=== PATIENT | female | born 1990 | race Two or more races ===

== ENCOUNTER 2024-10-25 10:00 | Outpatient (AMB) | payer MEDICAID, SELFPAY ==
[2024-10-25 11:03] VITALS: BP 112/78; PULSE 82; RESP 18; TEMP 36.6; O2SAT 98; BMI 26.4
--- NOTE | 2024-10-25 11:03 | ORTHONT_ITS ---
Vital signs 10/25/24 11:03 Height 1.57 m Height Method Stated Weight 65.431 kg Weight Measurement Method Standing Scale BMI 26.4 BP 112/78 Blood Pressure Source Automatic Cuff Blood Pressure Location Left Upper Arm Position Sitting Respiration 18 Pulse 82 Pulse Source Monitor Temp 97.9 F Temp Source Temporal Artery Scan Pulse Oximetry (%) 98 Oxygen Delivery Method Room Air Med/Allergies Allergies & Medications Allergies amoxicillin Allergy (Verified 10/25/24 11:04) Hives Medication Reconciliation meloxicam 7.5 mg tablet 7.5 mg PO QDAY #45 tabs 10/25/24 [Rx] Subjective Visit Visit for: new patient and knee (RIGHT) Immunization / Flu Flu Vaccine in the Last 12 Months: No Flu Vaccine Exclusion Criteria: No Exclusion Criteria History of Present Illness Chief complaint: RIGHT KNEE PAIN Geovanni is a pleasant 34-year-old female with right knee pain and what I suspect is a right knee meniscal tear. The pains been ongoing for at least 4 years sin ce COVID. This occurred after hiking. She has not had any anti-inflammatories or injections. She has tried formal physical therapy. She reports the knee is bothering her quite a bit. 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 Exam Exam Patient is in no acute distress and is cooperative with the examination today. Breathing is nonlabored. Patient has a normal mood and affect. The patient has a gait that is [nonantalgic] Bilateral extremities were evaluated and demonstrates sensation intact to light touch. Palpable pedal pulses are present. No significant edema is present. Bilateral hips were examined. The patient has no pain with log roll of the hips. Internal rotation to 30 degrees and external rotation to 30 degrees is painless. Negative FADIR. Left knee was examined today. The left knee is in reasonable alignment. Range of motion from 0-120 degrees. Knee is stable to varus and valgus as well as AP translation with <5mm. Patient has a negative McMurrays. There is no pain with patellofemoral compression and no crepitus noted. The knee is nontender to palpation. The right knee was also examined. Right knee is neutral alignment. She is tender to palpation medially and laterally at the joint line. She has a positive Jackie's and negative Clemencia's Assessment and Plan Problem List (1) Right knee meniscal tear: Status: Acute Plan: Patient is a pleasant 34-year-old female with right knee pain and a right knee meniscal tear based on clinical examination. She had a prior MRI that was normal but it is almost 3 years old. We would like to order a repeat MRI given her persistent pain and failure with therapy. We will see her back after the MRI is done. We will discuss different treatment options depending on what the MRI shows. 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 KEEPER Level 4 ([id number]) Past Medical History Past Medical History Have you ever been diagnosed with any of the following: Cardiology Problems Congestive Heart Failure: No Respiratory Problems Chronic Obstructive Pulmonary Disease (COPD): No Asthma: Yes (rarely takes med) Smoking: No Smoking Exposure: No Stomache/Intestinal Problems Hepatitis: No Genital/Urinary Problems Renal Disease: No Reproductive Problems Previous Pregnancies: Yes Endocrine Problems Diabetes Mellitus Type 1: No Diabetes Mellitus Type 2: No Blood Problems Sickle Cell Disease: No Psychologic Problems Anxiety: Yes Other Problems Hospitalization: No Shingles: No Blood Transfusions: No MRSA: No Chicken Pox: Yes Cancer: No
== END 2024-10-25 11:18 | disposition home or self-care (01) ==
PROVIDERS: PCP Family Medicine; Referring Provider Family Medicine; Supervising Provider Orthopaedic Surgery Adult Reconstructive Orthopaedic Surgery; Visit Provider Orthopaedic Surgery Adult Reconstructive Orthopaedic Surgery
DX: S83.206D Unspecified tear of unspecified meniscus, current injury, right knee, subsequent encounter (principal); X58.XXXD Exposure to other specified factors, subsequent encounter
CPT/HCPCS: 99204; G0463

== ENCOUNTER → 2024-12-03 | Outpatient (CLI) | payer MEDICAID, SELFPAY ==
--- NOTE | 2024-12-03 09:30 | XR_ITS ---
Exam: MRI knee without contrast, right Date and time of exam: December 03, 2024 0939 hrs. Indications: Anterior knee swelling pain joint locking joint clicking for years, worse the last 6 months Technique: Multiple axial, coronal, and sagittal sections on the knee have been obtained. T2-Weighted sagittal, fat-suppressed images, TR 3,500, TE 62, T2 weighted coronal fat-saturated images, TR 3,500, TE 62 Proton density sagittal sections, TR 1800, TE 31. T-1 weighted coronal images, TR 524, TE 13.0 Findings: Medial meniscus anterior horn intact. Medial meniscus, body is intact. Posterior horn medial meniscus intact. Lateral meniscus anterior horn is intact Lateral meniscus, body is intact Posterior horn lateral meniscus is intact Anterior cruciate ligament moderately attenuated Posterior cruciate ligament appears intact. Knee effusion is minimal. Quadriceps and patellar tendons appear intact. There is no evidence of tendinosis. Inflammatory change or fracture of Hoffa's fat pad is not seen. Medial patellar facet demonstrates no thinning. Lateral patellar facet cartilage demonstrates no thinning. Trochlear cartilage demonstrates no thinning. Marrow signal adequate. Medial collateral ligament appears intact. No meniscocapsular separation is seen. Illiotibial band and fibular collateral ligament are intact. Biceps femoris tendons appear intact. Medial femoral condylar articular cartilage demonstrates mild thinning. Lateral femoral condylar articular cartilage demonstratesmild thinning. Tibial plateau cartilage demonstrates mild thinning. Impression: Moderately attenuated anterior cruciate ligament
== END | disposition home or self-care (01) ==
LOC: SMRI 09:18
PROVIDERS: PCP Physician Assistant Medical; Referring Provider Orthopaedic Surgery Adult Reconstructive Orthopaedic Surgery; Visit Provider Orthopaedic Surgery Adult Reconstructive Orthopaedic Surgery
DX: M25.861 Other specified joint disorders, right knee (principal)
CPT/HCPCS: 73721

== ENCOUNTER 2024-12-23 13:38 | Outpatient (AMB) | payer MEDICAID, SELFPAY ==
[2024-12-23 14:24] VITALS: BP 119/85; PULSE 101; RESP 19; TEMP 36.7; O2SAT 98; BMI 26.4
--- NOTE | 2024-12-23 14:24 | PD.ORTHCLVIS ---
Vital signs 12/23/24 14:24 Height 1.57 m Height Method Stated Weight 65.119 kg Weight Measurement Method Standing Scale BMI 26.4 BP 119/85 H Blood Pressure Source Automatic Cuff Blood Pressure Location Right Upper Arm Position Sitting Respiration 19 Pulse 101 H Pulse Source Monitor Temp 98.0 F Temp Source Temporal Artery Scan Pulse Oximetry (%) 98 Oxygen Delivery Method Room Air Med/Allergies Allergies & Medications Allergies amoxicillin Allergy (Verified 12/23/24 14:25) Hives Medication Reconciliation meloxicam 7.5 mg tablet 7.5 mg PO QDAY #45 tabs 10/25/24 [Rx Confirmed 12/23/24] Exam Exam Patient is in no acute distress and is cooperative with the examination today. Breathing is nonlabored. Patient has a normal mood and affect. The patient has a gait that is [nonantalgic] Bilateral extremities were evaluated and demonstrates sensation intact to light touch. Palpable pedal pulses are present. No significant edema is present. Bilateral hips were examined. The patient has no pain with log roll of the hips. Internal rotation to 30 degrees and external rotation to 30 degrees is painless. Negative FADIR. Left knee was examined today. The left knee is in reasonable alignment. Range of motion from 0-120 degrees. Knee is stable to varus and valgus as well as AP translation with <5mm. Patient has a negative McMurrays. There is no pain with patellofemoral compression and no crepitus noted. The knee is nontender to palpation. The right knee was also examined. Right knee is neutral alignment. She is tender to palpation medially and laterally at the joint line. She has a positive Jackie's and negative Clemencia's Assessment and Plan Problem List (1) Right knee meniscal tear: Status: Acute Plan: Patient is a pleasant 34-year-old female with right knee pain and a right knee meniscal tear based on clinical examination. We reviewed her new MRI. This demonstrates no real pathology except for mildly attenuated ACL. Her meniscus actually looks great. We thus discussed continued conservative treatment. She did well with meloxicam and she would like a cortisone injectgion today. Recommend knee cortisone injection as patient would like to proceed with conservative treatment at this time. The risks and benefits of the procedure were reviewed with the patient and patient gave verbal consent to continue with the procedure. Procedure: performed by Dr. Ochoa Using sterile technique the Right knee was thoroughly prepped with alcohol, and approximately 1 cc of Kenalog 40 mg/mL and 4 cc of 1% lidocaine was injected without resistance into the medial tibial femoral joint space. The patient tolerated the procedure. Office Procedures GNS Level of Care Nursing/Assessment Patient Status: Established Patient Nursing Assessment/Reassesment: Medication Reconciliation, Update PMH in EMR and Vital Signs Coordination of Care: Complex Care and Chronic Disease 1-5, Education Complex Pt/Fam, Consent,records obtained, informed consent, Results/Orders obtained and Staff clarify orders Established Patient Charge Established Patient Point Assignment: 95 Established Patient Point Charge: EP Level 3 (80-115) Surgical Proc/IM SQ injection Major Surgical Procedure: Yes MA Intake Visit Data Collection New Patient or Established: Established Patient (seen at [facility] within 3 years) Reason for Visit:: f/u mri Seen by Clinical Staff ONLY (RN/MA): No Verbal consent obtained for Telemed visit?: 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 PCP or OBGYN visit in last 3 months: Yes Hx Now: No Do You Feel Safe at Home: Yes Authorities Contacted: N/A Questionairres Past Medical History Past Medical History Have you ever been diagnosed with any of the following: Cardiology Problems Congestive Heart Failure: No Respiratory Problems Chronic Obstructive Pulmonary Disease (COPD): No Asthma: Yes (rarely takes med) Smoking: No Smoking Exposure: No Stomache/Intestinal Problems Hepatitis: No Genital/Urinary Problems Renal Disease: No Reproductive Problems Previous Pregnancies: Yes Endocrine Problems Diabetes Mellitus Type 1: No Diabetes Mellitus Type 2: No Blood Problems Sickle Cell Disease: No Psychologic Problems Anxiety: Yes Other Problems Hospitalization: No Shingles: No Blood Transfusions: No MRSA: No Chicken Pox: Yes Cancer: No Subjective Visit Visit for: follow up visit and MRI Immunization / Flu Flu Vaccine in the Last 12 Months: No Flu Vaccine Exclusion Criteria: No Exclusion Criteria History of Present Illness Chief complaint: F/U MRI RESULTS Patient is a 34-year-old female with right knee pain. We ordered an MRI. We went over the MRI results today. It was relatively normal again except for the moderately attenuated ACL. Pain Pain level (0-10): 8 Pain duration: ALL DAY Ambulatory data Ambulatory device: none Treatments Improvement with previous injections: No Improvement with PT: No Improvement with NSAIDS: n/a Review of Systems Review of Systems: All systems negative unless otherwise noted in HPI.
== END 2024-12-23 14:42 | disposition home or self-care (01) ==
LOC: HODSRG 13:38
PROVIDERS: PCP Family Medicine; Referring Provider Family Medicine; Supervising Provider Orthopaedic Surgery Adult Reconstructive Orthopaedic Surgery; Visit Provider Orthopaedic Surgery Adult Reconstructive Orthopaedic Surgery
DX: S83.206D Unspecified tear of unspecified meniscus, current injury, right knee, subsequent encounter (principal); X58.XXXD Exposure to other specified factors, subsequent encounter; M25.561 Pain in right knee
CPT/HCPCS: 20610; 99213; J3301; J3490; G0463

== ENCOUNTER 2025-03-23 08:08 | Outpatient (AMB) | payer MEDICAID, SELFPAY ==
[2025-03-23 08:38] VITALS: BP 104/73; PULSE 88; RESP 18; TEMP 36.1; O2SAT 99; BMI 26.2
--- NOTE | 2025-03-23 08:38 | PD.ORTHCLVIS ---
Vital signs 03/23/25 08:38 Height 1.57 m Height Method Stated Weight 64.58 kg Weight Measurement Method Standing Scale BMI 26.2 BP 104/73 Blood Pressure Source Automatic Cuff Blood Pressure Location Right Upper Arm Position Sitting Respiration 18 Pulse 88 Pulse Source Monitor Temp 96.9 F Temp Source Temporal Artery Scan Pulse Oximetry (%) 99 Oxygen Delivery Method Room Air Med/Allergies Allergies & Medications Allergies amoxicillin Allergy (Verified 03/23/25 08:39) Hives Medication Reconciliation meloxicam 7.5 mg tablet 7.5 mg PO QDAY #45 tabs 10/25/24 [Rx Confirmed 03/23/25] Exam Exam Patient is in no acute distress and is cooperative with the examination today. Breathing is nonlabored. Patient has a normal mood and affect. The patient has a gait that is [nonantalgic] Bilateral extremities were evaluated and demonstrates sensation intact to light touch. Palpable pedal pulses are present. No significant edema is present. Bilateral hips were examined. The patient has no pain with log roll of the hips. Internal rotation to 30 degrees and external rotation to 30 degrees is painless. Negative FADIR. Left knee was examined today. The left knee is in reasonable alignment. Range of motion from 0-120 degrees. Knee is stable to varus and valgus as well as AP translation with <5mm. Patient has a negative McMurrays. There is no pain with patellofemoral compression and no crepitus noted. The knee is nontender to palpation. The right knee was also examined. Right knee is neutral alignment. She is tender to palpation medially and laterally at the joint line. She has a positive Jackie's and negative Clemencia's Assessment and Plan Problem List (1) Right knee meniscal tear: Status: Acute Plan: Patient is a pleasant 34-year-old female with right knee pain and a right knee meniscal tear based on clinical examination. We reviewed her new MRI. This demonstrates no real pathology except for a mildly attenuated ACL. Her meniscus actually looks great. We thus discussed continued conservative treatment. We tried a cortisone last time and it worked quite a while. She would like knee cortisone injection today. I would also like to get a Rheumatology workup Recommend knee cortisone injection as patient would like to proceed with conservative treatment at this time. The risks and benefits of the procedure were reviewed with the patient and patient gave verbal consent to continue with the procedure. Procedure: performed by Dr. Ochoa Using sterile technique the Right knee was thoroughly prepped with alcohol, and approximately 1 cc of Kenalog 40 mg/mL and 4 cc of 1% lidocaine was injected without resistance into the medial tibial femoral joint space. The patient tolerated the procedure. Office Procedures GNS Level of Care Nursing/Assessment Patient Status: Established Patient Nursing Assessment/Reassesment: Medication Reconciliation, Update PMH in EMR and Vital Signs Coordination of Care: Complex Care and Chronic Disease 1-5, Education Complex Pt/Fam, Consent,records obtained, informed consent, Results/Orders obtained and Staff clarify orders Established Patient Charge Established Patient Point Assignment: 95 Established Patient Point Charge: EP Level 3 (80-115) MA Intake Visit Data Collection New Patient or Established: Established Patient (seen at [facility] within 3 years) Reason for Visit:: MRI F/U Seen by Clinical Staff ONLY (RN/MA): No Verbal consent obtained for Telemed 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?: 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 PCP or OBGYN visit in last 3 months: Yes Hx Now: No Do You Feel Safe at Home: Yes Authorities Contacted: N/A Questionairres Past Medical History Past Medical History Have you ever been diagnosed with any of the following: Cardiology Problems Congestive Heart Failure: No Respiratory Problems Chronic Obstructive Pulmonary Disease (COPD): No Asthma: Yes (rarely takes med) Smoking: No Smoking Exposure: No Stomache/Intestinal Problems Hepatitis: No Genital/Urinary Problems Renal Disease: No Reproductive Problems Previous Pregnancies: Yes Endocrine Problems Diabetes Mellitus Type 1: No Diabetes Mellitus Type 2: No Blood Problems Sickle Cell Disease: No Psychologic Problems Anxiety: Yes Other Problems Hospitalization: No Shingles: No Blood Transfusions: No MRSA: No Chicken Pox: Yes Cancer: No Subjective Visit Visit for: follow up visit, knee and MRI Immunization / Flu Flu Vaccine in the Last 12 Months: No Flu Vaccine Exclusion Criteria: No Exclusion Criteria History of Present Illness Chief complaint: F/U MRI Patient is a 34-year-old female with right knee pain. We ordered an MRI. We went over the MRI results today. It was relatively normal again except for the moderately attenuated ACL. The patient reports that the knee does swell up quite a bit. This happens approximately every week or 2. She had an injection once and reports it helped for quite a bit of time. She hsa also had formal physical therapy and has tried anti-inflammatories. We did order an MRI previously which does not demonstrate any meniscal findings there is a mildly attenuated ACL as the only finding on the read. Pain Pain level (0-10): 10 Pain duration: ALL DAY Pain location: anterior Pain quality: sharp and other (specify) (SWOLLEN) Pain timing: increases with activity Associated signs & symptoms: none Ambulatory data Ambulatory device: none Treatments Improvement with previous injections: No Improvement with PT: No Improvement with NSAIDS: no Review of Systems Review of Systems: All systems negative unless otherwise noted in HPI.
== END 2025-03-23 09:05 | disposition home or self-care (01) ==
LOC: HODSRG 08:08
PROVIDERS: PCP Physician Assistant Medical; Referring Provider Physician Assistant Medical; Supervising Provider Orthopaedic Surgery Adult Reconstructive Orthopaedic Surgery; Visit Provider Orthopaedic Surgery Adult Reconstructive Orthopaedic Surgery
DX: S83.206D Unspecified tear of unspecified meniscus, current injury, right knee, subsequent encounter (principal); X58.XXXD Exposure to other specified factors, subsequent encounter; M25.561 Pain in right knee
CPT/HCPCS: 20610; 99213; J3301; J3490; G0463

== ENCOUNTER 2025-06-22 07:48 | Outpatient (AMB) | payer MEDICAID, SELFPAY ==
[2025-06-22 08:01] VITALS: BP 101/69; PULSE 81; RESP 18; TEMP 36.6; O2SAT 98; BMI 26.3
--- NOTE | 2025-06-22 08:01 | ORTHONT_ITS ---
Vital signs 06/22/25 08:01 Height 1.57 m Height Method Stated Weight 64.892 kg Weight Measurement Method Standing Scale BMI 26.3 BP 101/69 Blood Pressure Source Automatic Cuff Blood Pressure Location Right Upper Arm Position Sitting Respiration 18 Pulse 81 Pulse Source Monitor Temp 97.9 F Temp Source Temporal Artery Scan Pulse Oximetry (%) 98 Oxygen Delivery Method Room Air Med/Allergies Allergies & Medications Allergies amoxicillin Allergy (Verified 06/22/25 08:02) Hives Medication Reconciliation meloxicam 7.5 mg tablet 7.5 mg PO QDAY #45 tabs 10/25/24 [Rx Confirmed 06/22/25] ibuprofen 800 mg tablet 800 mg PO Q8H 06/22/25 [History Confirmed 06/22/25] Exam Exam Patient is in no acute distress and is cooperative with the examination today. Breathing is nonlabored. Patient has a normal mood and affect. The patient has a gait that is [nonantalgic] Bilateral extremities were evaluated and demonstrates sensation intact to light touch. Palpable pedal pulses are present. No significant edema is present. Bilateral hips were examined. The patient has no pain with log roll of the hips. Internal rotation to 30 degrees and external rotation to 30 degrees is painless. Negative FADIR. Left knee was examined today. The left knee is in reasonable alignment. Range of motion from 0-120 degrees. Knee is stable to varus and valgus as well as AP translation with <5mm. Patient has a negative McMurrays. There is no pain with patellofemoral compression and no crepitus noted. The knee is nontender to palpation. The right knee was also examined. Right knee is neutral alignment. She is tender to palpation medially and laterally at the joint line. She has a positive Jackie's and negative Clemencia's Assessment and Plan Problem List (1) Right knee meniscal tear: Status: Acute Plan: Patient is a pleasant 34-year-old female with right knee pain and a right knee meniscal tear based on clinical examination. We reviewed her new MRI. This demonstrates no real pathology except for a mildly attenuated ACL. Her meniscus actually looks great. We thus discussed continued conservative treatment. We tried a cortisone last time and it worked quite a while. She would like a repeat knee cortisone injection today. Her rheumatology workup is negative. We will also order more physical therapy Recommend knee cortisoRecommend knee cortisone injection as patient would like to proceed with conservative treatment at this time. The risks and benefits of the procedure were reviewed with the patient and patient gave verbal consent to continue with the procedure. Procedure: performed by Dr. Ochoa Using sterile technique the Right knee was thoroughly prepped with alcohol, and approximately 1 cc of Depo-Medrol 80mg/mL and 4 cc of 0.2% ropivacaine was injected without resistance into the medial tibial femoral joint space. The patient tolerated the procedure.e injection as patient would like to proceed with conservative treatment at this time. The risks and benefits of the procedure were reviewed with the patient and patient gave verbal consent to continue with the procedure. Procedure: performed by Dr. Ochoa Using sterile technique the Right knee was thoroughly prepped with alcohol, and approximately 1 cc of Methylprednisolone 80 mg/mL and 4 cc of 0.2% 0.2% ropivacaine was injected without resistance into the medial tibial femoral joint space. The patient tolerated the procedure. Office Procedures GNS Level of Care Nursing/Assessment Patient Status: Established Patient Nursing Assessment/Reassesment: Medication Reconciliation, Update PMH in EMR and Vital Signs Coordination of Care: Complex Care and Chronic Disease 1-5, Education Complex Pt/Fam, Consent,records obtained, informed consent, Results/Orders obtained and Staff clarify orders Established Patient Charge Established Patient Point Assignment: 95 Established Patient Point Charge: EP Level 3 (80-115) Surgical Proc/IM SQ injection Major Surgical Procedure: Yes (RIGHT KNEE INJECTION) Medication Given Medication Given Medication Given: Yes Documented Dose Given: 1 Route: Infiitration Medication Given Medication Given Medication Given: Yes Documented Dose Given: 4 Route: Infiitration Office Meds methylprednisolone acetate 80 mg/mL suspension for injection Performing Provider: Venkata Ochoa MD Performing Location: [facility] Administered by: Venkata Ochoa MD on 06/22/25 08:20 Dose Route Admin Location Dispensed Lot Number Expiration Date [facility] Bank Clerk 80 mg intra-articular 1 mL [id number] 10/29/26 [address]-8 [facility] ropivacaine (PF) 2 mg/mL (0.2 %) injection solution Performing Provider: Venkata Ochoa MD Performing Location: [facility] Administered by: Venkata Ochoa MD on 06/22/25 08:20 Dose Route Admin Location Dispensed Lot Number Expiration Date [facility] Bank Clerk 20 mL Infiltration 20 mL [id number] 10/29/26 69753-882-37 CLIVE BAZAN MA Intake Visit Data Collection New Patient or Established: Established Patient (seen at [facility] within 3 years) Reason for Visit:: FOLLOW UP RIGHT KNEE PAIN Seen by Clinical Staff ONLY (RN/MA): No 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: No PCP or OBGYN visit in last 3 months: Yes Hx Now: No Do You Feel Safe at Home: Yes Authorities Contacted: N/A Questionairres Past Medical History Past Medical History Have you ever been diagnosed with any of the following: Neurological Problems Cerebrovascular Accident (CVA): No Transient Ischemic Attacks (TIA): No Dementia: No Alzheimer's Disease: No Parkinson's Disease: No Brain Tumor: No Meningitis: No Seizures: No Epilepsy: No Multiple Sclerosis: No Cerebral Palsy: No Amyotrophic Lateral Sclerosis (ALS/Tatiana Gehrig's): No Guillain-[place] Syndrome: No Spina Bifida: No Paralysis: No Peripheral Neuropathy: No Felton's Palsy: No Subdural Hematoma: No Migraine: No Head Trauma: No Spinal Cord Injury: No Traumatic Brain Injury: No Cardiology Problems Myocardial Infarction: No Cardiac Arrhythmia: No Atrial Fibrillation: No Angina: No Heart Murmur: No Coronary Artery Disease: No Atherosclerotic Heart Disease: No Peripheral Vascular Disease: No Hypercholesterolemia: No Aneurysm: No Congestive Heart Failure: No Congenital Heart Disease: No Valvular Heart Disease: No Rheumatic Fever: No Cardiomyopathy: No Edema: No Pericarditis: No Cellulitis: No Deep Vein Thrombosis: No Hypertension: No Hypotension: No Varicose Veins: No Respiratory Problems Chronic Obstructive Pulmonary Disease (COPD): No Asthma: Yes (rarely takes med) Bronchitis: No Emphysema: No Pneumonia: No Pulmonary Fibrosis: No Tuberculosis: No Pulmonary Embolism: No Pulmonary Edema: No Sleep Apnea: No CPAP Dependent: No Respiratory Aspiration: No Dyspnea: No Orthopnea: No Hx Cough: No Cough: No Wheezing: No Chest Deformities: No Smoking: No Smoking Cessation Counseling: No Smoking Exposure: No Tobacco Use: No Clubbing: No Exposure to Respiratory Irritants: No Intubation: No Stomache/Intestinal Problems Liver Cancer: No Hepatitis: No Cirrhosis: No Pancreatic Cancer: No Pancreatitis: No Celiac Disease: No Gall Bladder Disease: No Gastrointestinal Bleed: No Esophageal Varices: No Johnson's Esophagus: No Colitis: No Ulcerative Colitis: No Diverticulitis: No Diverticulosis: No Ulcer: No Colorectal Cancer: No Irritable Bowel: No Crohn's Disease: No Obstructive Bowel: No Hiatal Hernia: No Hemorrhoids: No Gastroesophageal Reflux Disease: No Polyps: No Obesity: No Genital/Urinary Problems Chronic Kidney Disease: No Renal Disease: No Kidney Stones: No Polycystic Kidney Disease: No Neurogenic Bladder: No Inguinal Hernia: No Dialysis: No Reproductive Problems Breast Cancer: No Endometriosis: No Fibroids: No Genital Herpes: No Gonorrhea: No Pelvic Inflammatory Disease: No Polycystic Ovarian Syndrome: No Previous Pregnancies: Yes Syphilis: No Uterine Prolapse: No Musculoskeletal Problems Muscular Dystrophy: No Myasthenia Gravis: No Marfan's Syndrome: No Bone Cancer: No Arthritis: No Rheumatoid Arthritis: No Osteoporosis: No Degenerative Disk Disease: No Gout: No Scoliosis: No Carpal Tunnel Syndrome: No Fibromyalgia: No Fractures: No Degenerative Joint Disease: No Osteomyelitis: No Poliovirus: No Head,Eye,Nose,Throat Problems Cataracts: No Glaucoma: No Blind: No Retinal Detachment: No Macular Degeneration: No Chronic Ear Infections: No Deafness: No Eye Prosthesis: No Endocrine Problems Diabetes Mellitus Type 1: No Diabetes Mellitus Type 2: No Blood Problems Anemia: No Leukemia: No Hemophilia: No Thalassemia: No Sickle Cell Disease: No Clotting Problems: No Psychologic Problems Schizophrenia: No Recreational Drug Use: No Bipolar Disorder: No Depression: No Anxiety: Yes Behavior Problems: No Self-Mutilation: No Attention Deficit Disorder: No Attention Deficit Hyperactivity Disorder: No Depression: No Post Traumatic Stress Disorder: No Eating Disorder: No Other Problems Hospitalization: No Autoimmune Disease: No Down Syndrome: No Autism: No Developmental Delay: No Cosmetic Surgery: No Shingles: No Falls: No Blood Transfusions: No Blood Transfusion Reaction: No Anesthesia Reactions: No Organ Transplant: No Chemotherapy: No Radiation Therapy: No Hyperbaric Therapy: No MRSA: No VRSA: No Vancomycin-Resistant Enterococci: No Human Immunodeficiency Virus (HIV): No Chicken Pox: Yes Measles: No Mumps: No Rubella (Armenian Measles): No Pertussis: No Klebsiella Pneumoniae Carbapenemase Producing Bacteria: No Clostridium Difficile: No Hepatitis A: No Hepatitis B: No Hepatitis C: No Communicable Disease: No Cancer: No Cervical Cancer: No Lung Cancer: No Ovarian Cancer: No Surgical History Angioplasty: No Appendectomy: No Bariatric Surgery: No Breast Surgery: No Cancer Surgery: No Carotid Endarterectomy: No Cholecystectomy: No Colectomy: No Colostomy: No Coronary Artery Bypass Graft: No Valve Replacement: No Herniorrhaphy: No Total Hip Replacement: No Total Knee Replacement: No Hysterectomy: No Pacemaker: No Sinus Surgery: No Splenectomy: No TAHBSO-Total Abdominal Hysterectomy: No Thyroidectomy: No Ureter Stent: No Subjective Visit Visit for: follow up visit, knee and injections (LASTED ONLY 1 MTH) Immunization / Flu Flu Vaccine in the Last 12 Months: No Flu Vaccine Exclusion Criteria: No Exclusion Criteria History of Present Illness Chief complaint: F/U MRI With patient is a pleasant 35-year-old female with right knee pain that has been ongoing for a while. She tried physical therapy, anti-inflammatories, and injections. Her MRI has been rather unremarkable. There was no meniscus tear which is what we expected. Pain Pain level (0-10): 6 Pain duration: ALL DAY Pain location: inside (medial) and anterior Pain quality: dull and aching Pain timing: night and increases with activity Associated signs & symptoms: weakness Ambulatory data Ambulatory device: other (specify) (KNEE BRACE) Treatments Number of previous injections: 1 Improvement with previous injections: No Improvement with PT: No Improvement with NSAIDS: no (IBUPROFEN) Review of Systems Review of Systems: All systems negative unless otherwise noted in HPI.
== END 2025-06-22 08:24 | disposition home or self-care (01) ==
LOC: HODSRG 07:48
PROVIDERS: PCP Physician Assistant Medical; Referring Provider Physician Assistant Medical; Supervising Provider Orthopaedic Surgery Adult Reconstructive Orthopaedic Surgery; Visit Provider Orthopaedic Surgery Adult Reconstructive Orthopaedic Surgery
DX: S83.206D Unspecified tear of unspecified meniscus, current injury, right knee, subsequent encounter (principal); X58.XXXD Exposure to other specified factors, subsequent encounter; M25.561 Pain in right knee
CPT/HCPCS: 20610; 99213; J1010; J2795; G0463

== ENCOUNTER 2025-07-24 08:05 | Outpatient (RCR) | payer MEDICAID, SELFPAY ==
--- NOTE | 2025-07-24 15:22 | PTNOTE_ITS ---
PT OP Initial Eval Patient Information Outpatient Physical Therapy Treatment Date: 07/24/25 Visit Reasons: right knee pain Medical Diagnosis: Right Knee Pain Treatment Dx #1: Right Knee Pain Start of Care: 07/24/25 Date of Onset: 2019 Smoking Status Smoking Status: Never smoker Initial Assessment Subjective: Pt is a 35 y/o female reports of chronic right knee pain (07/09) after hiking. This injury happen back in 2019 during covid. According to patient she has a torn meniscus and ACL. Pt has limitation with standing, walking, chores, self care, cooking, cleaning, work duties, balance, and performing recreational ac tivities. Objective: Right Knee AROM: all motions are WNL with end range pain Right Knee MMTs: grossly 4-/5 Right Hip MMTs: grossly 3+/5 Special Test (+) gagandeep's (+) Jackie Assessment: Pt demonstrate right knee pain with weakness leading to difficulty with ADLs. Pt will benefit from physical therapy to increase ROM, strength, and work on stability. Short Term and Halfway Goals 1) Increase right knee AROM WNL in 6 wks to be able to perform chores 2) Decrease knee pain to 2/10 in 6 wks to be able to stand more than 30 mins 3) Increase right knee MMTs grossly to 4/5 in 6 wks to be able to perform squatting activities 4) Increase right hip MMTs grossly to 4-/5 in 6 wks to be able to walk more than 30 mins 5) Indep with HEP Treatment Plan 1) Manual Therapy 2) Therapeutic Activities 3) Therapeutic Exercises 4) Modalities (ice, heat) 5) Balance Training 6) Gait Training Frequency and Duration: 2 x wk for 6 wks Certification Dates: 07/24/25 to 10/24/25 Procedure Charges OP PT Eval Mod Complex 30 minutes: Yes
== END 2025-07-30 23:59 | disposition home or self-care (01) ==
LOC: CPTX 08:05
PROVIDERS: PCP Physician Assistant Medical; Referring Provider Orthopaedic Surgery Adult Reconstructive Orthopaedic Surgery; Visit Provider Orthopaedic Surgery Adult Reconstructive Orthopaedic Surgery
DX: M25.561 Pain in right knee (principal); R53.1 Weakness; R26.2 Difficulty in walking, not elsewhere classified; R26.89 Other abnormalities of gait and mobility; G89.29 Other chronic pain
CPT/HCPCS: 97162

== ENCOUNTER 2025-08-28 08:00 | Outpatient (RCR) | payer MEDICAID, SELFPAY ==
--- NOTE | 2025-08-07 12:59 | PT.ODAYNRPT ---
PT Outpatient Daily Note OP Daily Note Outpatient Physical Therapy Treatment Date: 08/07/25 Visit Reasons: Rt knee pain Subjective: Pt's knee is about the same. No change in pain or swelling. Objective: Please see flow chart for list of ther ex performed Assessment: tolerate exercises with minimal pain. Post ice helped with pain and soreness Plan: Continue with PT Length of Time (minutes) of Treatment: 30 Minutes Procedure Charges Therapeutic Exercise 30 minutes: Yes
--- NOTE | 2025-08-14 10:49 | PT.ODAYNRPT ---
PT Outpatient Daily Note OP Daily Note Outpatient Physical Therapy Treatment Date: 08/14/25 Visit Reasons: Rt knee pain Subjective: Pt reports no improvement w/ Rt knee and explains she experiences an increase in pain and throbbing to Rt knee post ascending/descending a flight stairs. Objective: See F/S for therex performed Assessment: Tolerated therex well with good mechanics and minimal pain to Rt knee. Ice pack applied post session. Plan: Continue with POC Length of Time (minutes) of Treatment: 30 Minutes Procedure Charges Therapeutic Exercise 30 minutes: Yes
--- NOTE | 2025-08-28 08:56 | PT.ODAYNRPT ---
PT Outpatient Daily Note OP Daily Note Outpatient Physical Therapy Treatment Date: 08/28/25 Visit Reasons: Rt knee pain Subjective: Pt's knee hurting more. Pt was walking a lot in [place] this past week. Pt continues to have swelling in the knee and is unsure of the next MD appt. Objective: Please see flow chart for list of ther ex performed Assessment: difficulty with closed chain exercises due to knee pain, however, able to complete instructed reps Plan: Continue with PT Length of Time (minutes) of Treatment: 30 Minutes Procedure Charges Therapeutic Exercise 30 minutes: Yes
== END 2025-08-29 23:59 | disposition home or self-care (01) ==
LOC: CPTX 08:00
PROVIDERS: PCP Orthopaedic Surgery Adult Reconstructive Orthopaedic Surgery; Referring Provider Orthopaedic Surgery Adult Reconstructive Orthopaedic Surgery; Visit Provider Orthopaedic Surgery Adult Reconstructive Orthopaedic Surgery
DX: M25.561 Pain in right knee (principal); G89.29 Other chronic pain; R26.2 Difficulty in walking, not elsewhere classified; R26.89 Other abnormalities of gait and mobility; R53.1 Weakness
CPT/HCPCS: 97110

== ENCOUNTER 2025-09-12 15:30 | Outpatient (RCR) | payer MEDICAID, SELFPAY ==
--- NOTE | 2025-09-04 08:36 | PT.ODAYNRPT ---
PT Outpatient Daily Note OP Daily Note Outpatient Physical Therapy Treatment Date: 09/04/25 Visit Reasons: right knee pain Subjective: Pt' continues to have pain leading to difficulty with ADLs. Pt mentioned her knee feels about the same since starting physical therapy. Objective: Please see flow chart for list of ther ex performed Assessment: tolerate exercises with minimal pain; difficulty completing side step due to hip fatigue and knee pain Plan: Continue with PT Length of Time (minutes) of Treatment: 30 Minutes Procedure Charges Therapeutic Exercise 30 minutes: Yes
--- NOTE | 2025-09-12 15:51 | PT.ODS1RPT ---
PT OP Progress/Discharge Note Date of Service: 09/12/25 Progress Note/DC Note Progress Note/Discharge Note: DC Note Patient Information Visit Reasons: right knee pain Medical Diagnosis: Right Knee Pain Treatment Dx #1: Right Knee Pain Service Discharge Date: 09/12/25 Status Subjective: Pt's knee is the same and continues to hurt. Pt has a follow up appt with specialist at the end of the month. Pt still has pain with walking, standing, pivoting, squatting, and performing recreational activities. Objective: Right Knee AROM: all motions are WNL with end range pain Right Knee MMTs: grossly 4/5 Right Hip MMTs: grossly 3+5 Special Tet (+) gagandeep's (+) Jackie Assessment: Pt demonstrate functional right knee mobility and strength, however, no change in pain leading to difficulty with ADLs. At this time Pt will no longer benefit from physical therapy due to plateau towards goals. Pt was not instructed on HEP due to exercises increases pain. Pt advised to follow up with MD for further consultation; thank you for your referrals. Plan: D/C home with and follow up with MD LAM Procedure Charges Therapeutic Exercise 30 minutes: Yes
== END 2025-09-29 23:59 | disposition home or self-care (01) ==
LOC: CPTX 15:30
PROVIDERS: PCP Orthopaedic Surgery Adult Reconstructive Orthopaedic Surgery; Referring Provider Orthopaedic Surgery Adult Reconstructive Orthopaedic Surgery; Visit Provider Orthopaedic Surgery Adult Reconstructive Orthopaedic Surgery
DX: M25.561 Pain in right knee (principal); R26.2 Difficulty in walking, not elsewhere classified; R26.89 Other abnormalities of gait and mobility; R53.1 Weakness; G89.29 Other chronic pain
CPT/HCPCS: 97110

== ENCOUNTER 2025-09-22 07:53 | Outpatient (AMB) | payer MEDICAID, SELFPAY ==
--- NOTE | 2025-09-22 08:01 | PD.ORTHCLVIS ---
Vital signs 09/22/25 08:02 Height 1.57 m Height Method Stated Weight 64.524 kg Weight Measurement Method Standing Scale BMI 26.2 BP 109/74 Blood Pressure Source Automatic Cuff Blood Pressure Location Left Upper Arm Position Sitting Respiration 18 Pulse 84 Pulse Source Monitor Temp 97.2 F Temp Source Temporal Artery Scan Pulse Oximetry (%) 97 Oxygen Delivery Method Room Air Med/Allergies Allergies & Medications Allergies amoxicillin Allergy (Verified 09/22/25 08:02) Hives Medication Reconciliation meloxicam 7.5 mg tablet 7.5 mg PO QDAY #45 tabs 10/25/24 [Rx Confirmed 09/22/25] ibuprofen 800 mg tablet 800 mg PO Q8H 06/22/25 [History Confirmed 09/22/25] lidocaine 4 % topical patch 1 patch topical BID PRN 09/22/25 [History Confirmed 09/22/25] Exam Exam Patient is in no acute distress and is cooperative with the examination today. Breathing is nonlabored. Patient has a normal mood and affect. The patient has a gait that is [nonantalgic] Bilateral extremities were evaluated and demonstrates sensation intact to light touch. Palpable pedal pulses are present. No significant edema is present. Bilateral hips were examined. The patient has no pain with log roll of the hips. Internal rotation to 30 degrees and external rotation to 30 degrees is painless. Negative FADIR. Left knee was examined today. The left knee is in reasonable alignment. Range of motion from 0-120 degrees. Knee is stable to varus and valgus as well as AP translation with <5mm. Patient has a negative McMurrays. There is no pain with patellofemoral compression and no crepitus noted. The knee is nontender to palpation. The right knee was also examined. Right knee is neutral alignment. She is tender to palpation medially and laterally at the joint line. She has a positive Jackie's and negative Clemencia's Assessment and Plan Problem List (1) Right knee meniscal tear: Status: Acute Plan: Patient is a pleasant 34-year-old female with right knee pain and a right knee meniscal tear based on clinical examination. We reviewed her new MRI. This demonstrates no real pathology except for a mildly attenuated ACL. Her meniscus actually looks great On the MRI from November 2024. Given that she has continued pain and has failed physical therapy and we have no real explanation for her pain, I would recommend a repeat MRI. The patient is miserable and would like to even consider a arthroscopic knee surgery for both diagnostic and possibly therapeutic purposes. I would rather order a repeat MRI first release if something was going on. The pain is diffuse Plan We will see her back after her repeat MRI is done. She Has failed conservative treatment Office Procedures GNS Level of Care Nursing/Assessment Patient Status: Established Patient Nursing Assessment/Reassesment: Medication Reconciliation, Update PMH in EMR and Vital Signs Coordination of Care: Complex Care and Chronic Disease 1-5, Education Complex Pt/Fam, Consent,records obtained, informed consent, Results/Orders obtained and Staff clarify orders Established Patient Charge Established Patient Point Assignment: 95 Established Patient Point Charge: EP Level 3 (80-115) MA Intake Visit Data Collection New Patient or Established: Established Patient (seen at [facility] within 3 years) Reason for Visit:: RIGHT KNEE PAIN/FOLLOW UP PHYSICAL THERAPY Seen by Clinical Staff ONLY (RN/MA): No 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 PCP or OBGYN visit in last 3 months: Yes Hx Now: No Do You Feel Safe at Home: Yes Authorities Contacted: N/A Questionairres Past Medical History Past Medical History Have you ever been diagnosed with any of the following: Neurological Problems Cerebrovascular Accident (CVA): No Transient Ischemic Attacks (TIA): No Dementia: No Alzheimer's Disease: No Parkinson's Disease: No Brain Tumor: No Meningitis: No Seizures: No Epilepsy: No Multiple Sclerosis: No Cerebral Palsy: No Amyotrophic Lateral Sclerosis (ALS/Tatiana Gehrig's): No Guillain-[place] Syndrome: No Spina Bifida: No Paralysis: No Peripheral Neuropathy: No Felton's Palsy: No Subdural Hematoma: No Migraine: No Head Trauma: No Spinal Cord Injury: No Traumatic Brain Injury: No Cardiology Problems Myocardial Infarction: No Cardiac Arrhythmia: No Atrial Fibrillation: No Angina: No Heart Murmur: No Coronary Artery Disease: No Atherosclerotic Heart Disease: No Peripheral Vascular Disease: No Hypercholesterolemia: No Aneurysm: No Congestive Heart Failure: No Congenital Heart Disease: No Valvular Heart Disease: No Rheumatic Fever: No Cardiomyopathy: No Edema: No Pericarditis: No Cellulitis: No Deep Vein Thrombosis: No Hypertension: No Hypotension: No Varicose Veins: No Respiratory Problems Chronic Obstructive Pulmonary Disease (COPD): No Asthma: Yes (rarely takes med) Bronchitis: No Emphysema: No Pneumonia: No Pulmonary Fibrosis: No Tuberculosis: No Pulmonary Embolism: No Pulmonary Edema: No Sleep Apnea: No CPAP Dependent: No Respiratory Aspiration: No Dyspnea: No Orthopnea: No Hx Cough: No Cough: No Wheezing: No Chest Deformities: No Smoking: No Smoking Cessation Counseling: No Smoking Exposure: No Tobacco Use: No Clubbing: No Exposure to Respiratory Irritants: No Intubation: No Stomache/Intestinal Problems Liver Cancer: No Hepatitis: No Cirrhosis: No Pancreatic Cancer: No Pancreatitis: No Celiac Disease: No Gall Bladder Disease: No Gastrointestinal Bleed: No Esophageal Varices: No Johnson's Esophagus: No Colitis: No Ulcerative Colitis: No Diverticulitis: No Diverticulosis: No Ulcer: No Colorectal Cancer: No Irritable Bowel: No Crohn's Disease: No Obstructive Bowel: No Hiatal Hernia: No Hemorrhoids: No Gastroesophageal Reflux Disease: No Polyps: No Obesity: No Genital/Urinary Problems Chronic Kidney Disease: No Renal Disease: No Kidney Stones: No Polycystic Kidney Disease: No Neurogenic Bladder: No Inguinal Hernia: No Dialysis: No Reproductive Problems Breast Cancer: No Endometriosis: No Fibroids: No Genital Herpes: No Gonorrhea: No Pelvic Inflammatory Disease: No Polycystic Ovarian Syndrome: No Previous Pregnancies: Yes Syphilis: No Uterine Prolapse: No Musculoskeletal Problems Muscular Dystrophy: No Myasthenia Gravis: No Marfan's Syndrome: No Bone Cancer: No Arthritis: No Rheumatoid Arthritis: No Osteoporosis: No Degenerative Disk Disease: No Gout: No Scoliosis: No Carpal Tunnel Syndrome: No Fibromyalgia: No Fractures: No Degenerative Joint Disease: No Osteomyelitis: No Poliovirus: No Head,Eye,Nose,Throat Problems Cataracts: No Glaucoma: No Blind: No Retinal Detachment: No Macular Degeneration: No Chronic Ear Infections: No Deafness: No Eye Prosthesis: No Endocrine Problems Diabetes Mellitus Type 1: No Diabetes Mellitus Type 2: No Blood Problems Anemia: No Leukemia: No Hemophilia: No Thalassemia: No Sickle Cell Disease: No Clotting Problems: No Psychologic Problems Schizophrenia: No Recreational Drug Use: No Bipolar Disorder: No Depression: No Anxiety: Yes Behavior Problems: No Self-Mutilation: No Attention Deficit Disorder: No Attention Deficit Hyperactivity Disorder: No Depression: No Post Traumatic Stress Disorder: No Eating Disorder: No Other Problems Hospitalization: No Autoimmune Disease: No Down Syndrome: No Autism: No Developmental Delay: No Cosmetic Surgery: No Shingles: No Falls: No Blood Transfusions: No Blood Transfusion Reaction: No Anesthesia Reactions: No Organ Transplant: No Chemotherapy: No Radiation Therapy: No Hyperbaric Therapy: No MRSA: No VRSA: No Vancomycin-Resistant Enterococci: No Human Immunodeficiency Virus (HIV): No Chicken Pox: Yes Measles: No Mumps: No Rubella (Azeri Measles): No Pertussis: No Klebsiella Pneumoniae Carbapenemase Producing Bacteria: No Clostridium Difficile: No Hepatitis A: No Hepatitis B: No Hepatitis C: No Communicable Disease: No Cancer: No Cervical Cancer: No Lung Cancer: No Ovarian Cancer: No Surgical History Angioplasty: No Appendectomy: No Bariatric Surgery: No Breast Surgery: No Cancer Surgery: No Carotid Endarterectomy: No Cholecystectomy: No Colectomy: No Colostomy: No Coronary Artery Bypass Graft: No Valve Replacement: No Herniorrhaphy: No Total Hip Replacement: No Total Knee Replacement: No Hysterectomy: No Pacemaker: No Sinus Surgery: No Splenectomy: No TAHBSO-Total Abdominal Hysterectomy: No Thyroidectomy: No Ureter Stent: No Subjective Visit Visit for: follow up visit and knee Immunization / Flu Flu Vaccine in the Last 12 Months: No Flu Vaccine Exclusion Criteria: No Exclusion Criteria History of Present Illness Chief complaint: FOLLOW UP PHYSICAL THERAPY/R KNEE PAIN With patient is a pleasant 35-year-old female with right knee pain that has been ongoing for a while. She tried physical therapy, anti-inflammatories, and injections. Her MRI has been rather unremarkable. There was no meniscus tear which is what we expected. She reports continued pain and has tried formal physical therapy, 2 injections, and anti-inflammatories including meloxicam. She reports that she has pain all the time and it has only worsened. The last MRI it was approaching 1 year ago and we thus recommended a repeat MRI given that we have not found pretty much anything on the MRI before and that her symptoms are worsening Pain Pain level (0-10): 9 Pain duration: CONSTANT Pain location: inside (medial) and anterior Pain quality: sharp, dull and aching Pain timing: night, increases with activity and stairs Associated signs & symptoms: weakness Ambulatory data Ambulatory device: other (specify) (KNEE BRACE) Treatments Number of previous injections: 1 Improvement with previous injections: No Number of Physical Therapy sessions: 12 (MADE PAIN WORSE) Improvement with PT: No Improvement with NSAIDS: no (IBUPROFEN) Review of Systems Review of Systems: All systems negative unless otherwise noted in HPI.
[2025-09-22 08:02] VITALS: BP 109/74; PULSE 84; RESP 18; TEMP 36.2; O2SAT 97; BMI 26.2
== END 2025-09-22 08:20 | disposition home or self-care (01) ==
LOC: HODSRG 07:53
PROVIDERS: Supervising Provider Orthopaedic Surgery Adult Reconstructive Orthopaedic Surgery; Visit Provider Orthopaedic Surgery Adult Reconstructive Orthopaedic Surgery
DX: M25.561 Pain in right knee (principal); S83.206D Unspecified tear of unspecified meniscus, current injury, right knee, subsequent encounter; X58.XXXD Exposure to other specified factors, subsequent encounter
CPT/HCPCS: 99213; G0463

== ENCOUNTER 2025-11-07 13:40 | Outpatient (AMB) | payer MEDICAID, SELFPAY ==
--- NOTE | 2025-11-07 14:05 | PD.ORTHCLVIS ---
Vital signs 11/07/25 14:06 Height 1.57 m Height Method Stated Weight 65.091 kg Weight Measurement Method Standing Scale BMI 26.4 BP 117/72 Blood Pressure Source Automatic Cuff Blood Pressure Location Left Upper Arm Position Sitting Respiration 19 Pulse 92 Pulse Source Monitor Temp 98.0 F Temp Source Temporal Artery Scan Pulse Oximetry (%) 98 Oxygen Delivery Method Room Air Med/Allergies Allergies & Medications Allergies amoxicillin Allergy (Verified 11/07/25 14:06) Hives Medication Reconciliation meloxicam 7.5 mg tablet 7.5 mg PO QDAY #45 tabs 10/25/24 [Rx Confirmed 11/07/25] ibuprofen 800 mg tablet 800 mg PO Q8H 06/22/25 [History Confirmed 11/07/25] lidocaine 4 % topical patch 1 patch topical BID PRN 09/22/25 [History Confirmed 11/07/25] Exam Exam Patient is in no acute distress and is cooperative with the examination today. Breathing is nonlabored. Patient has a normal mood and affect. The patient has a gait that is [nonantalgic] Bilateral extremities were evaluated and demonstrates sensation intact to light touch. Palpable pedal pulses are present. No significant edema is present. Bilateral hips were examined. The patient has no pain with log roll of the hips. Internal rotation to 30 degrees and external rotation to 30 degrees is painless. Negative FADIR. Left knee was examined today. The left knee is in reasonable alignment. Range of motion from 0-120 degrees. Knee is stable to varus and valgus as well as AP translation with <5mm. Patient has a negative McMurrays. There is no pain with patellofemoral compression and no crepitus noted. The knee is nontender to palpation. The right knee was also examined. Right knee is neutral alignment. She is tender to palpation medially and laterally at the joint line. She has a positive Jackie's. She has a lot of pain with AP instability. The Clemencia's and anterior drawer are symmetrical to the other side An MRI was reviewed dated 10/07/2025. This demonstrates a high-grade sprain of the ACL. The meniscus is are intact Assessment and Plan Problem List (1) Right knee meniscal tear: Status: Acute Plan: Patient is a pleasant 34-year-old female with right knee pain and a right knee meniscal tear based on clinical examination. We ordered a repeat MRI. This demonstrates meniscus tear intact. The read says there is a high-grade ACL sprain. This is likely not acute as there are no bone bruises. She has tried physical therapy and anti-inflammatories as well as a brace. Given that a lot of her symptoms are from instability, I recommend referral to a sports surgeon for evaluation for ACL surgery Plan We recommend referral for a possible ACL repair Office Procedures GNS Level of Care Nursing/Assessment Patient Status: Established Patient Nursing Assessment/Reassesment: Medication Reconciliation, Update PMH in EMR and Vital Signs Coordination of Care: Complex Care and Chronic Disease 1-5, Education Complex Pt/Fam, Consent,records obtained, informed consent, Results/Orders obtained and Staff clarify orders Established Patient Charge Established Patient Point Assignment: 95 Established Patient Point Charge: Level 3 (80-115) MA Intake Visit Data Collection New Patient or Established: Established Patient (seen at [facility] within 3 years) Reason for Visit:: RIGHT KNEE PAIN/MRI RESULTS Seen by Clinical Staff ONLY (RN/MA): No 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 PCP or OBGYN visit in last 3 months: Yes Hx Now: No Do You Feel Safe at Home: Yes Authorities Contacted: N/A Questionairres Past Medical History Past Medical History Have you ever been diagnosed with any of the following: Neurological Problems Cerebrovascular Accident (CVA): No Transient Ischemic Attacks (TIA): No Dementia: No Alzheimer's Disease: No Parkinson's Disease: No Brain Tumor: No Meningitis: No Seizures: No Epilepsy: No Multiple Sclerosis: No Cerebral Palsy: No Amyotrophic Lateral Sclerosis (ALS/Tatiana Gehrig's): No Guillain-[place] Syndrome: No Spina Bifida: No Paralysis: No Peripheral Neuropathy: No Felton's Palsy: No Subdural Hematoma: No Migraine: No Head Trauma: No Spinal Cord Injury: No Traumatic Brain Injury: No Cardiology Problems Myocardial Infarction: No Cardiac Arrhythmia: No Atrial Fibrillation: No Angina: No Heart Murmur: No Coronary Artery Disease: No Atherosclerotic Heart Disease: No Peripheral Vascular Disease: No Hypercholesterolemia: No Aneurysm: No Congestive Heart Failure: No Congenital Heart Disease: No Valvular Heart Disease: No Rheumatic Fever: No Cardiomyopathy: No Edema: No Pericarditis: No Cellulitis: No Deep Vein Thrombosis: No Hypertension: No Hypotension: No Varicose Veins: No Respiratory Problems Chronic Obstructive Pulmonary Disease (COPD): No Asthma: Yes (rarely takes med) Bronchitis: No Emphysema: No Pneumonia: No Pulmonary Fibrosis: No Tuberculosis: No Pulmonary Embolism: No Pulmonary Edema: No Sleep Apnea: No CPAP Dependent: No Respiratory Aspiration: No Dyspnea: No Orthopnea: No Hx Cough: No Cough: No Wheezing: No Chest Deformities: No Smoking: No Smoking Cessation Counseling: No Smoking Exposure: No Tobacco Use: No Clubbing: No Exposure to Respiratory Irritants: No Intubation: No Stomache/Intestinal Problems Liver Cancer: No Hepatitis: No Cirrhosis: No Pancreatic Cancer: No Pancreatitis: No Celiac Disease: No Gall Bladder Disease: No Gastrointestinal Bleed: No Esophageal Varices: No Johnson's Esophagus: No Colitis: No Ulcerative Colitis: No Diverticulitis: No Diverticulosis: No Ulcer: No Colorectal Cancer: No Irritable Bowel: No Crohn's Disease: No Obstructive Bowel: No Hiatal Hernia: No Hemorrhoids: No Gastroesophageal Reflux Disease: No Polyps: No Obesity: No Genital/Urinary Problems Chronic Kidney Disease: No Renal Disease: No Kidney Stones: No Polycystic Kidney Disease: No Neurogenic Bladder: No Inguinal Hernia: No Dialysis: No Reproductive Problems Breast Cancer: No Endometriosis: No Fibroids: No Genital Herpes: No Gonorrhea: No Pelvic Inflammatory Disease: No Polycystic Ovarian Syndrome: No Previous Pregnancies: Yes Syphilis: No Uterine Prolapse: No Musculoskeletal Problems Muscular Dystrophy: No Myasthenia Gravis: No Marfan's Syndrome: No Bone Cancer: No Arthritis: No Rheumatoid Arthritis: No Osteoporosis: No Degenerative Disk Disease: No Gout: No Scoliosis: No Carpal Tunnel Syndrome: No Fibromyalgia: No Fractures: No Degenerative Joint Disease: No Osteomyelitis: No Poliovirus: No Head,Eye,Nose,Throat Problems Cataracts: No Glaucoma: No Blind: No Retinal Detachment: No Macular Degeneration: No Chronic Ear Infections: No Deafness: No Eye Prosthesis: No Endocrine Problems Diabetes Mellitus Type 1: No Diabetes Mellitus Type 2: No Blood Problems Anemia: No Leukemia: No Hemophilia: No Thalassemia: No Sickle Cell Disease: No Clotting Problems: No Psychologic Problems Schizophrenia: No Recreational Drug Use: No Bipolar Disorder: No Depression: No Anxiety: Yes Behavior Problems: No Self-Mutilation: No Attention Deficit Disorder: No Attention Deficit Hyperactivity Disorder: No Depression: No Post Traumatic Stress Disorder: No Eating Disorder: No Other Problems Hospitalization: No Autoimmune Disease: No Down Syndrome: No Autism: No Developmental Delay: No Cosmetic Surgery: No Shingles: No Falls: No Blood Transfusions: No Blood Transfusion Reaction: No Anesthesia Reactions: No Organ Transplant: No Chemotherapy: No Radiation Therapy: No Hyperbaric Therapy: No MRSA: No VRSA: No Vancomycin-Resistant Enterococci: No Human Immunodeficiency Virus (HIV): No Chicken Pox: Yes Measles: No Mumps: No Rubella (Ch[place]an Measles): No Pertussis: No Klebsiella Pneumoniae Carbapenemase Producing Bacteria: No Clostridium Difficile: No Hepatitis A: No Hepatitis B: No Hepatitis C: No Communicable Disease: No Cancer: No Cervical Cancer: No Lung Cancer: No Ovarian Cancer: No Surgical History Angioplasty: No Appendectomy: No Bariatric Surgery: No Breast Surgery: No Cancer Surgery: No Carotid Endarterectomy: No Cholecystectomy: No Colectomy: No Colostomy: No Coronary Artery Bypass Graft: No Valve Replacement: No Herniorrhaphy: No Total Hip Replacement: No Total Knee Replacement: No Hysterectomy: No Pacemaker: No Sinus Surgery: No Splenectomy: No TAHBSO-Total Abdominal Hysterectomy: No Thyroidectomy: No Ureter Stent: No Subjective Visit Visit for: follow up visit and knee Immunization / Flu Flu Vaccine in the Last 12 Months: No Flu Vaccine Exclusion Criteria: No Exclusion Criteria History of Present Illness Chief complaint: KNEE PAIN/MRI RESULTS With patient is a pleasant 35-year-old female with right knee pain that has been ongoing for a while. She tried physical therapy, anti-inflammatories, and injections. Her MRI has been rather unremarkable. There was no meniscus tear which is what we expected. She reports continued pain and has tried formal physical therapy, 2 injections, and anti-inflammatories including meloxicam. She reports that she has pain all the time and it has only worsened. She had a repeat MRI and she has persistent pain and instability of her right knee. The MRI demonstrates a high-grade tear of the ACL. There are no bone bruises Pain Pain level (0-10): 9 Pain duration: CONSTANT Pain location: inside (medial) and anterior Pain quality: sharp, dull and aching Pain timing: night, increases with activity and stairs Associated signs & symptoms: weakness Ambulatory data Ambulatory device: other (specify) (KNEE BRACE) Treatments Number of previous injections: 1 Improvement with previous injections: No Number of Physical Therapy sessions: 12 (MADE PAIN WORSE) Improvement with PT: No Improvement with NSAIDS: no (IBUPROFEN) Review of Systems Review of Systems: All systems negative unless otherwise noted in HPI.
[2025-11-07 14:06] VITALS: BP 117/72; PULSE 92; RESP 19; TEMP 36.7; O2SAT 98; BMI 26.4
== END 2025-11-07 14:20 | disposition home or self-care (01) ==
LOC: HODSRG 13:40
PROVIDERS: Supervising Provider Orthopaedic Surgery Adult Reconstructive Orthopaedic Surgery; Visit Provider Orthopaedic Surgery Adult Reconstructive Orthopaedic Surgery
DX: S83.206D Unspecified tear of unspecified meniscus, current injury, right knee, subsequent encounter (principal); X58.XXXD Exposure to other specified factors, subsequent encounter; M25.561 Pain in right knee
CPT/HCPCS: 99213; G0463